=== PATIENT | male | born 1960 | race Caucasian/White ===

== ENCOUNTER 2023-04-10 10:05 | Emergency (ER) | payer OTHER ==
[~2023-04-10] VITALS: Ht 185.4 cm; Wt 101.0 kg
[2023-04-10 11:50] VITALS: BP 119/83; PULSE 64; RESP 18; TEMP 98.8; O2SAT 98
== END 2023-04-10 11:55 | disposition home or self-care (01) ==
LOC: ER 10:05
DX: S52.601A Unspecified fracture of lower end of right ulna, initial encounter for closed fracture (principal); S61.411A Laceration without foreign body of right hand, initial encounter; W45.8XXA Other foreign body or object entering through skin, initial encounter; Y93.89 Activity, other specified; Y92.89 Other specified places as the place of occurrence of the external cause; Y99.8 Other external cause status
CPT/HCPCS: 29125; 73110; 99283; A6449